=== PATIENT | female | born 1970 | race Two or more races ===

== ENCOUNTER 2025-04-20 11:55 | Day surgery (SDC) | payer MEDICAID, SELFPAY ==
[2025-04-19 11:36] VITALS: BMI 25.7
[2025-04-20] VITALS (11 sets, daily range): BP systolic 109–143; BP diastolic 68–91; PULSE 73–115; RESP 13–20; TEMP 36.7–36.9; O2SAT 96–100; BMI 25.4
[2025-04-20] MEDS: RINGERS LACTATED 1000 ML 1,000 ML 100 ML IV (13:13)
[2025-04-20] MEDS: fentaNYL CIT INJ 50 mCg/ML AMP 2ML (ASD USE ONLY) IVP (13:19)
[2025-04-20] MEDS: MIDAZOLAM INJ 1 MG/ML VIAL 2 ML (ASD USE ONLY) 2 MG IVP (13:32)
== END 2025-04-20 15:14 | disposition home or self-care (01) ==
PROVIDERS: Referring Provider Surgery; Visit Provider Surgery
PROC: 0DBE8ZX Excision of Large Intestine, Via Natural or Artificial Opening Endoscopic, Diagnostic (ICD-10-PCS; CPT 45380; principal; 2025-04-20 13:00)
DX: K64.4 Residual hemorrhoidal skin tags (principal); Z86.0100 Personal history of colon polyps, unspecified; R73.03 Prediabetes; M81.0 Age-related osteoporosis without current pathological fracture
CPT/HCPCS: 45378; 81025; A4649; J1200; J2250; J3010; J7120